=== PATIENT | female | born 1980 | race Caucasian/White ===

== ENCOUNTER 2018-12-24 16:48 | Emergency (ER) | payer BC ==
[~2018-12-24] VITALS: Ht 167.6 cm; Wt 59.0 kg
--- NOTE | 2018-12-24 16:48 | NUR ---
pt bibra from witness seizure, no trauma noted; pt [id number], -sob, nad noted, seizure precautions started, pt to bed 6, vss. pending md richmond
[2018-12-24 17:27] LABS: BASOPHILS % (AUTO) 0.6 % (0.0-2.0); EOSINOPHILS % (AUTO) 0.2 % (0.0-6.0); HEMATOCRIT 33 % (33-45); HEMOGLOBIN 10.9 g/dL (11.5-14.8); MEAN CORPUSCULAR HGB CONC 33 g/dl (31.0-36.0); MEAN CORPUSCULAR VOLUME 96 fL (82-100); MONOCYTES # (AUTO) 0.3 /CMM (0.1-1.30); MONOCYTES % (AUTO) 11.2 % (2.0-12.0); NEUTROPHILS # (AUTO) 1.6 /CMM (1.8-8.9); PLATELET COUNT (AUTO) 75 /CMM (150-450); RED BLOOD CELL COUNT(AUTO) 3.46 MIL/uL (4.0-5.2); WHITE BLOOD COUNT (AUTO) 2.9 K/uL (4.3-11.0)
[2018-12-24] MEDS ORDERED: LEVETIRACETAM (500MG) 1,000 MG in IV NS 0.9% 100 ML IV SCH (17:30)
[2018-12-24 17:41] LABS: CALCIUM, SERUM 9.6 mg/dL (8.5-10.1); POTASSIUM 3.2 mmol/L (3.5-5.1)
[2018-12-24] MEDS ORDERED: IV NS 0.9% 1,000 ML BAG IV ONE (18:00)
[2018-12-24] MEDS ORDERED: POTASSIUM CHLORIDE 20 MEQ TAB.PRT.SR PO ONE ×2 (18:00→18:03)
[2018-12-24 18:49] LABS: NEUTROPHILS % (MANUAL) 51 (42-76)
[2018-12-24 18:50] LABS: LYMPHOCYTES % (MANUAL) 40 % (16-48); MONOCYTES % (MANUAL) 9 % (0-11.0)
[2018-12-24 19:10] LABS: BASOPHILS % (AUTO) 0.5 % (0.0-2.0); EOSINOPHILS % (AUTO) 0.3 % (0.0-6.0); HEMATOCRIT 31 % (33-45); LYMPHOCYTES # (AUTO) 0.8 /CMM (0.8-4.8); LYMPHOCYTES % (AUTO) 31.2 % (20.0-44.0); MEAN CORPUSCULAR HGB CONC 33 g/dl (31.0-36.0); MEAN CORPUSCULAR VOLUME 97 fL (82-100); MONOCYTES # (AUTO) 0.3 /CMM (0.1-1.30); MONOCYTES % (AUTO) 12.3 % (2.0-12.0); NEUTROPHILS # (AUTO) 1.4 /CMM (1.8-8.9); NEUTROPHILS % (AUTO) 55.7 % (43.0-81.0); PLATELET COUNT (AUTO) 60 /CMM (150-450); RED BLOOD CELL COUNT(AUTO) 3.16 MIL/uL (4.0-5.2); WHITE BLOOD COUNT (AUTO) 2.5 K/uL (4.3-11.0)
[2018-12-24 19:22] LABS: CALCIUM, SERUM 8.7 mg/dL (8.5-10.1); CREATININE 0.7 mg/dL (0.6-1.3); POTASSIUM 3.4 mmol/L (3.5-5.1)
[2018-12-24 21:00] VITALS: BP 129/69
[2018-12-24] MEDS ORDERED: LORAZEPAM 1 MG TABLET PO ONE (21:00)
[2018-12-24] MEDS ORDERED: LORAZEPAM 1 MG TABLET ONE (21:05)
--- NOTE | 2018-12-24 21:26 | NUR ---
Patient does not wish to proceed with medical care recommended by Dr. Waite. Patient given information related to possible complications, up to and including , which could occur as a result of leaving the hospital at this time. Patient verbalizes understanding of risks involved due to leaving against medical advice. Patient has signed AMA form.
== END 2018-12-24 21:28 | disposition left against medical advice (07) ==
LOC: ER 16:57
DX: R56.9 Unspecified convulsions (principal); F41.9 Anxiety disorder, unspecified; R41.0 Disorientation, unspecified
CPT/HCPCS: 36415; 70450; 80048 ×2; 85025 ×2; 96361; 96365; 99284; J1953; J7030 ×2

== ENCOUNTER 2021-08-30 10:21 | Emergency (ER) | payer BC, OTHER ==
[~2021-08-30] VITALS: Ht 167.6 cm; Wt 59.9 kg
--- NOTE | 2021-08-30 10:25 | NUR ---
PT SEEN AND EXAMINED BY .
[2021-08-30 10:31] VITALS: BP 135/72
[2021-08-30] MEDS ORDERED: KETOROLAC TROMETHAMINE INJ 30 MG/ML VIAL IM ONE (12:00)
--- NOTE | 2021-08-30 12:00 | NUR ---
LUCAS WRAP AND CRUTCHES PROVIDED.
[2021-08-30] MEDS ORDERED: IBUP-1955 PO (12:04)
--- NOTE | 2021-08-30 12:18 | NUR ---
Patient discharged to home in stable condition. Written and verbal after care instructions given. Patient verbalizes understanding of instruction.
== END 2021-08-30 12:20 | disposition home or self-care (01) ==
LOC: ER 10:30
DX: S83.421A Sprain of lateral collateral ligament of right knee, initial encounter (principal); F41.9 Anxiety disorder, unspecified; G43.909 Migraine, unspecified, not intractable, without status migrainosus; X50.1XXA Overexertion from prolonged static or awkward postures, initial encounter; Y93.89 Activity, other specified; Y92.89 Other specified places as the place of occurrence of the external cause; Y99.8 Other external cause status
CPT/HCPCS: 73564-TC

== ENCOUNTER 2023-10-10 11:09 | Emergency (ER) | payer OTHER ==
[~2023-10-10] VITALS: Ht 167.6 cm; Wt 61.7 kg
[~2023-10-10 11:09] MED LIST: IBUP-1955 PO
[2023-10-10 11:29] VITALS: TEMP 97.8
[2023-10-10] MEDS ORDERED: LORAZEPAM 1 MG TABLET ONE (12:31)
[2023-10-10] MEDS ORDERED: ONDANSETRON 4 MG TAB.RAPDIS ONE (12:35)
[2023-10-10] MEDS: LORAZEPAM 1 MG TABLET PO ONE (12:48)
[2023-10-10] MEDS: ONDANSETRON 4 MG TAB.RAPDIS SL ONE (12:48)
[2023-10-10 12:49] VITALS: BP 124/97; O2SAT 98
== END 2023-10-10 12:50 | disposition home or self-care (01) ==
LOC: ER 11:23
DX: R00.2 Palpitations (principal); Z79.899 Other long term (current) drug therapy
CPT/HCPCS: 99283; 93005; Q0162